=== PATIENT | male | born 1935 | race Hispanic/Latino ===

== ENCOUNTER 2023-10-03 16:58 | Emergency (ER) | payer MEDICARE, BC ==
[~2023-10-03] VITALS: Ht 170.2 cm; Wt 87.1 kg
[2023-10-03 17:47] LABS: BASOPHILS # (AUTO) 0.03 K/uL (0.00-0.20); BASOPHILS % (AUTO) 0.5 % (0.0-5.0); EOSINOPHILS # (AUTO) 0.25 K/uL (0.00-0.70); EOSINOPHILS % (AUTO) 4.4 % (0.0-8.0); HEMATOCRIT 41.2 % (42-54); LYMPHOCYTES # (AUTO) 1.3 K/uL (1.0-4.8); LYMPHOCYTES % (AUTO) 22.7 % (21.0-51.0); MEAN CORPUSCULAR HGB CONC 33.5 g/dL (32.0-36.0); MEAN CORPUSCULAR VOLUME 89.6 fL (79-99); MONOCYTES # (AUTO) 0.5 K/uL (0.1-1.0); MONOCYTES % (AUTO) 9.4 % (3.0-13.0); NEUTROPHILS # (AUTO) 3.6 K/uL (1.8-7.7); PLATELET COUNT (AUTO) 95 K/uL (130-400); RED CELL DISTRIBUTION WIDTH 13.8 % (11.0-15.5); WHITE BLOOD COUNT (AUTO) 5.7 K/uL (4.8-10.8)
[2023-10-03 17:54] LABS: CREATININE 1.4 mg/dL (0.5-1.3); POTASSIUM 4.3 mmol/L (3.5-5.1)
[2023-10-03 17:59] LABS: ALBUMIN 3.2 g/dL (3.5-5.0); BILIRUBIN,DIRECT 0.2 mg/dL (0.0-0.3); BILIRUBIN,TOTAL 0.6 mg/dL (0.2-1.0); MAGNESIUM 1.1 mg/dL (1.80-2.40); TOTAL PROTEIN, SERUM 6.5 g/dL (6.0-8.3)
[2023-10-03 18:01] LABS: INR 1.35 (0.85-1.15); PROTHROMBIN TIME 14.3 SEC (9.6-11.6)
[2023-10-03 18:03] LABS: PARTIAL THROMBOPLASTIN TIME 26.4 SEC (26.3-35.5)
[2023-10-03 18:28] LABS: APPEARANCE,URINE CLEAR (CLEAR); BILIRUBIN,URINE NEGATIVE (NEGATIVE); COLOR,URINE YELLOW (YELLOW); GLUCOSE, URINE (UA) NEGATIVE (NEGATIVE); KETONES,URINE NEGATIVE (NEGATIVE); LEUKOCYTE ESTERASE ,URINE NEGATIVE Leu/uL (NEGATIVE); NITRATE,URINE NEGATIVE (NEGATIVE); OCCULT BLOOD,URINE NEGATIVE (NEGATIVE); PH,URINE 5.5 (5.0-8.0); PROTEIN,URINE 100 mg/dL (NEGATIVE); UROBILINOGEN,URINE 0.2 mg/dL (0.2-1.0)
[2023-10-03 18:30] LABS: ADD UA MICROSCOPIC YES
[2023-10-03] MEDS ORDERED: MAGNESIUM 2GM PREMIX 50ML 50 ML IV SCH (18:30)
[2023-10-03 18:31] LABS: MUCUS,URINE RARE LPF (None Seen); RBC,URINE 0-1 /HPF (0-1); SQUAMOUS EPITHELIAL CELL,UR RARE /HPF (0-2); WBC,URINE 0-1 /HPF (0-1)
[2023-10-03] MEDS: 0.9% NACL 500ML IV.SOLN 500 ML IV SCH (19:41)
[2023-10-03] MEDS: mecliZINE HCL 12.5 MG TABLET PO ONE (19:41)
[2023-10-03] MEDS ORDERED: MECL-302 PO (19:45)
[2023-10-03 19:54] VITALS: BP 131/46; PULSE 76; RESP 13; O2SAT 95
== END 2023-10-03 20:35 | disposition home or self-care (01) ==
LOC: EDH 16:58
DX: R42 Dizziness and giddiness (principal); E83.42 Hypomagnesemia; I49.3 Ventricular premature depolarization; I10 Essential (primary) hypertension; I25.2 Old myocardial infarction; E78.5 Hyperlipidemia, unspecified; Z98.890 Other specified postprocedural states
CPT/HCPCS: 99285; 70450; 71045; 82550; 80076; 83735; 84484; 80048; 83880; 85025; 85610; 85730; 81001; 36415; 93005; J7040; 96360

== ENCOUNTER 2023-10-26 11:34 | Emergency (ER) | payer OTHER, MEDICARE ==
[~2023-10-26] VITALS: Ht 170.2 cm; Wt 87.1 kg
[~2023-10-26 11:34] MED LIST: MECL-302 PO
[2023-10-26 12:04] LABS: BASOPHILS # (AUTO) 0.01 K/uL (0.00-0.20); BASOPHILS % (AUTO) 0.2 % (0.0-5.0); EOSINOPHILS # (AUTO) 0.07 K/uL (0.00-0.70); EOSINOPHILS % (AUTO) 1.2 % (0.0-8.0); HEMATOCRIT 40.8 % (42-54); IMMATURE GRANULOCYTE ABSOLUTE 0.02 K/uL (0-1); LYMPHOCYTES # (AUTO) 0.5 K/uL (1.0-4.8); LYMPHOCYTES % (AUTO) 8.4 % (21.0-51.0); MEAN CORPUSCULAR HEMOGLOBIN 30.4 pg (27.0-33.0); MEAN CORPUSCULAR HGB CONC 33.6 g/dL (32.0-36.0); MEAN CORPUSCULAR VOLUME 90.5 fL (79-99); MONOCYTES # (AUTO) 0.7 K/uL (0.1-1.0); MONOCYTES % (AUTO) 11.9 % (3.0-13.0); NEUTROPHILS # (AUTO) 4.5 K/uL (1.8-7.7); PLATELET COUNT (AUTO) 82 K/uL (130-400); RED BLOOD CELL COUNT(AUTO) 4.51 MIL/uL (4.50-6.20); RED CELL DISTRIBUTION WIDTH 14.1 % (11.0-15.5); WHITE BLOOD COUNT (AUTO) 5.8 K/uL (4.8-10.8)
[2023-10-26 12:12] LABS: CREATININE 1.5 mg/dL (0.5-1.3); POTASSIUM 4.4 mmol/L (3.5-5.1)
[2023-10-26] MEDS: ALBUTEROL 0.083% 2.5 MG/3 ML INH IH ONE (14:04)
[2023-10-26 14:07] VITALS: PULSE 85; RESP 18
[2023-10-26] MEDS: dexaMETHasone SOD PHOSPHATE 4 MG/ML 1ML VIAL IV ONE (14:11)
[2023-10-26] MEDS ORDERED: ALBUHFA IH (14:25)
[2023-10-26] MEDS ORDERED: BENZ-39 PO (14:25)
[2023-10-26] MEDS ORDERED: AZIT500T2 PO (14:25)
[2023-10-26 15:03] VITALS: BP 128/50; PULSE 16; RESP 18; TEMP 97.8; O2SAT 99
== END 2023-10-26 15:06 | disposition home or self-care (01) ==
LOC: EDH 11:34
DX: U07.1 COVID-19 (principal); R06.00 Dyspnea, unspecified; I12.9 Hypertensive chronic kidney disease with stage 1 through stage 4 chronic kidney disease, or unspecified chronic kidney disease; E11.22 Type 2 diabetes mellitus with diabetic chronic kidney disease; N18.9 Chronic kidney disease, unspecified; E11.65 Type 2 diabetes mellitus with hyperglycemia; Z79.899 Other long term (current) drug therapy; Z98.890 Other specified postprocedural states
CPT/HCPCS: 99285; 96374; 71045; 87426; 84484; 80048; 85025; 36415; 93005; 94640; J1100

== ENCOUNTER 2024-04-21 13:26 | Emergency (ER) | payer OTHER ==
[~2024-04-21] VITALS: Ht 170.2 cm; Wt 84.8 kg
[~2024-04-21 13:26] MED LIST changes: +ALBUHFA IH; +AZIT500T2 PO; +BENZ-39 PO
--- NOTE | 2024-04-21 13:48 | ERN ---
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 Patient was brought in by EMS with stable vital signs. Patient reports about 24 hours ago he developed a headache. Insidious in onset. Bilateral frontal. No vision changes. No vomiting. No confusion. No recent falls. No blood thinners. Patient reports he normally does not get headaches in his concerned that this headache is worse than usual. Allergies: Coded Allergies: No Known Drug Allergies (Unverified Allergy, Unknown, 10/03/23) Home Meds Active Scripts Azithromycin (Zithromax Tri-Nickolas) 500 Mg Tablet, 500 MG PO AD for 5 Days, #5 TAB ONE TABLET P.O. DAILY FOR FIVE DAYS. Prov:JONATHON DE LUNA NP 10/26/23 Benzonatate (Tessalon Perles) 100 Mg Cap, 100 MG PO TID for cough, #30 CAP 0 Refills Prov:JONATHON DE LUNA NP 10/26/23 Albuterol Sulfate (Ventolin Hfa/Proventil Hfa/Proair Hfa) 90 Mcg Puff, 2 PUFF IH Q4H for WHEEZING, #1 INHALER 0 Refills Prov:JONATHON DE LUNA NP 10/26/23 Meclizine HCl (Meclizine HCl) 25 Mg Tablet, 12.5 MG PO TID for vertigo, #30 TAB 0 Refills Prov:LURDES BOWLES MD 10/03/23 Past Medical History Past Medical History: Hypertension Past Surgical History: None ROS Dictation CONSTITUTIONAL: No chills, no fever, no weakness, no diaphoresis, no malaise. HEAD/FACE: No signs of trauma. EENT: No eye pain, no blurred vision, no tearing, no double vision, no ear pain, no ear discharge, no nose pain, no nasal congestion, no throat pain, no throat swelling, no mouth pain. RESPIRATORY: No cough, no orthopnea, no SOB, no stridor, no wheezing. CARDIOVASCULAR: No chest pain, no edema, no palpitations, no syncope. GASTROINTESTINAL/ABDOMINAL: No abdominal pain, no constipation, no diarrhea, no nausea, no vomiting. GENITOURINARY: No abnormal discharge, no dysuria, no frequent urination, no hematuria. No complaints of pain in the genitals. MUSCULOSKELETAL: No back pain, no gout, no joint pain, no joint swelling, no muscle pain, no muscle stiffness, no neck pain. INTEGUMENTARY: No change in color, no change in hair/nails, no dryness, no lesion, no lumps, no rash. NEUROLOGICAL/PSYCH: Hepatoma headache HEMATOLOGIC/LYMPHATIC: Not anemic, no history of blood clots, no apparent bleeding, no bruising, glands not swollen. All Systems Negative, Except as Noted. Physical Exam Physical Exam Dictation VITAL SIGNS: Reviewed. GENERAL APPEARANCE: Alert, oriented x3, no acute distress HEAD AND FACE: Non-traumatic. EYES: PERRL, pink conjunctivas, eyelid no trauma, anterior chamber clear. EARS: Pinnas intact and no signs of trauma or erythema. Ear canals clear and no discharge. TMs no erythema. NOSE: No discharge, no bleeding. OROPHARYNX: Mouth normal, teeth no caries, tongue pink. Pharynx clear, no erythema. Tonsils no exudates, no abscesses noted. Mucous membrane moist. NECK: Supple, non-tender, no thyromegaly, no masses, no JVD, no bruits. BREAST: Deferred. CHEST: No tenderness, no crepitus, no paradoxical movement, no retractions. LUNGS: Clear, well-ventilated, symmetric, no rales, no wheezing, no rhonchi, no stridor, good breath sounds bilaterally. HEART: Regular rate, regular rhythm, no murmur, no gallops. VASCULAR: No peripheral edema. ABDOMEN: Soft, positive bowel sounds, nondistended, no guarding, nontender, no rebound, no masses no hepatomegaly, no splenomegaly, no Abbott's sign, no hernias. RECTAL: Deferred. GENITAL: Deferred. NEUROLOGICAL: Normal speech, gross motor function intact, gross sensory function intact. MUSCULOSKELETAL: Neck nontender, full range of motion, back nontender, full range of motion. EXTREMITIES: Nontender, full range of motion. SKIN: Color pink, dry, no turgor, no rash, no lacerations, no abrasions, no contusions. LYMPHATICS: Deferred. Results Laboratory and Microbiology Lab and Micro Result Laboratory Tests Test 04/21/24 14:16 White Blood Count 5.9 K/uL (4.8-10.8) Red Blood Count 5.44 MIL/uL (4.50-6.20) Hemoglobin 16.9 g/dL (14.0-18.0) Hematocrit 49.6 % (42-54) Mean Corpuscular Volume 91.2 fL (79-99) Mean Corpuscular Hemoglobin 31.1 pg (27.0-33.0) Mean Corpuscular Hemoglobin Concent 34.1 g/dL (32.0-36.0) Red Cell Distribution Width 13.2 % (11.0-15.5) Platelet Count 92 K/uL (130-400) L Mean Platelet Volume 11.5 fL (7.5-10.5) H Immature Granulocyte % (Auto) 0.5 % (0-1) Neutrophils (%) (Auto) 72.2 % (40.0-77.0) Lymphocytes (%) (Auto) 15.9 % (21.0-51.0) L Monocytes (%) (Auto) 8.6 % (3.0-13.0) Eosinophils (%) (Auto) 2.0 % (0.0-8.0) Basophils (%) (Auto) 0.8 % (0.0-5.0) Neutrophils # (Auto) 4.3 K/uL (1.8-7.7) Lymphocytes # (Auto) 0.9 K/uL (1.0-4.8) L Monocytes # (Auto) 0.5 K/uL (0.1-1.0) Eosinophils # (Auto) 0.12 K/uL (0.00-0.70) Basophils # (Auto) 0.05 K/uL (0.00-0.20) Absolute Immature Granulocyte (auto 0.03 K/uL (0-1) Nucleated Red Blood Cells 0.0 % (0.0-0.19) Sodium Level 133 mmol/L (136-145) L Potassium Level 3.9 mmol/L (3.5-5.1) Chloride Level 98 mmol/L (101-111) L Carbon Dioxide Level 29 mmol/L (21-32) Blood Urea Nitrogen 21 mg/dL (7-18) H Creatinine 1.4 mg/dL (0.5-1.3) H Glomerular Filtration Rate Calc 49 mL/min (>90) Random Glucose 338 mg/dL (70-105) H Total Calcium 9.2 mg/dL (8.5-10.1) Total Creatine Kinase 47 U/L (21-232) Troponin I High Sensitivity 18.9 ng/L (4-75) MDM CC: Headache Historian: Patient Comorbidities: Advanced age, diabetes, hypertension Limitations by social determinants of health: None Vital signs: Stable Clinical exam: Cranial nerves are intact Differential diagnosis: Benign headache, migraine, tension, brain bleed, subarachnoid, other. Labs (independently ordered and interpreted by me ): No leukocytosis or anemia. Platelets 92. Chemistries unremarkable. Creatinine 1.4 baseline for patient. He does have an elevated glucose level 338. CK is stable. Troponin is normal. CT head without contrast ( independently ordered and interpreted by me ): No acute bleed or abnormalities. Treatment in ED: 1 L of lactated Ringer's, 15 mg IV Toradol. Re-evaluation: Patient reports feeling much better. He was asymptomatic and ambulatory. He reports that he feels better and wants to go home. I did offer the patient admission for observation since he would have a headache came in by EMS he was very concerned. He reports that he only came in by EMS because he did not have a ride otherwise he would a went to his doctor's office. He does not want to stay in the hospital this time. He was a GCS 15 and otherwise looks very well. We will DC. ED Course Orders Procedure Category Date Status Time Ct Head/Brain W/O CT 04/21/24 Resulted Contrast 13:41 Cbc With Differential LAB 04/21/24 Complete 13:41 Basic Metabolic Panel LAB 04/21/24 Complete 13:41 Lactated Ringers PHA 04/21/24 Complete 1000ml (Lactated 14:00 Ketorolac PHA 04/21/24 Complete Tromethamine 15mg/Ml 14:00 Cardiac Panel LAB 04/21/24 Complete 13:46 Chest 1vw RAD 04/21/24 Resulted 13:46 Current Medications Medications (Trade) Dose Ordered Sig/Nola Route PRN Reason Start Time Stop Time Status Last Admin Dose Admin Ketorolac Tromethamine (toRADol) 15 mg ONCE ONCE IV 04/21/24 14:00 04/21/24 14:05 DC 04/21/24 14:51 Lactated Ringer's 1,000 ml @ 0 mls/hr ONCE ONCE IV 04/21/24 14:00 04/21/24 14:01 DC 04/21/24 14:51 Vital Signs Date Time Temp Pulse Resp B/P (MAP) Pulse Ox O2 Delivery O2 Flow Rate FiO2 04/21/24 15:00 98.4 64 19 155/69 98 Room Air* 0 21 04/21/24 14:18 98.4 63 16 165/67 97 Room Air 0 DX & DISP Disposition: Discharge Departure Impression: Primary Impression: Headache Condition: Stable Scripts Ketorolac Tromethamine (Toradol) 10 Mg Tab 1 TAB PO Q6HPRN PRN for pain for 5 Days, #20 TAB 0 Refills Prov: ELIEZER NAIR DO 04/21/24 Additional Instructions: There are no dangerous findings on your workup here today. Your symptoms are consistent with a benign headache. The CT scan of your brain is unremarkable. Your blood work (CBC, BMP, troponin) is unremarkable. You received IV fluids and Toradol here in the ER. I have prescribed ketorolac to use as needed for significant headache. Use as needed. Please follow up with the primary doctor. Please return to the emergency department if you have any concerns. Referrals: SELF,REFERRAL (PCP) ELIEZER NAIR DO Apr 21, 2024 13:48
[2024-04-21 14:33] LABS: BASOPHILS # (AUTO) 0.05 K/uL (0.00-0.20); BASOPHILS % (AUTO) 0.8 % (0.0-5.0); EOSINOPHILS # (AUTO) 0.12 K/uL (0.00-0.70); HEMATOCRIT 49.6 % (42-54); IMMATURE GRANULOCYTE ABSOLUTE 0.03 K/uL (0-1); LYMPHOCYTES # (AUTO) 0.9 K/uL (1.0-4.8); LYMPHOCYTES % (AUTO) 15.9 % (21.0-51.0); MEAN CORPUSCULAR HEMOGLOBIN 31.1 pg (27.0-33.0); MEAN CORPUSCULAR HGB CONC 34.1 g/dL (32.0-36.0); MEAN CORPUSCULAR VOLUME 91.2 fL (79-99); MONOCYTES # (AUTO) 0.5 K/uL (0.1-1.0); MONOCYTES % (AUTO) 8.6 % (3.0-13.0); NEUTROPHILS # (AUTO) 4.3 K/uL (1.8-7.7); NEUTROPHILS % (AUTO) 72.2 % (40.0-77.0); PLATELET COUNT (AUTO) 92 K/uL (130-400); RED BLOOD CELL COUNT(AUTO) 5.44 MIL/uL (4.50-6.20); RED CELL DISTRIBUTION WIDTH 13.2 % (11.0-15.5); WHITE BLOOD COUNT (AUTO) 5.9 K/uL (4.8-10.8)
[2024-04-21 14:39] LABS: CREATININE 1.4 mg/dL (0.5-1.3); POTASSIUM 3.9 mmol/L (3.5-5.1)
[2024-04-21] MEDS: ketOROlac 15MG/ML VIAL (15MG/ML) IV ONE (14:51)
[2024-04-21] MEDS: LACTATED RINGERS 1000ML 1,000 ML IV ONE (14:51)
--- NOTE | 2024-04-21 15:47 | HMCIMG ---
Exam Type: CT HEAD/BRAIN W/O CONTRAST Clinical Information: headache Comparison: None CT Dose Index (CTDI): 57.33 mGy Dose Length Product (DLP): 956.79 total mGy-cm Findings: The examination shows atrophy. There is low attenuation throughout the periventricular white matter locations, consistent with chronic small vessel ischemic changes. No acute intra- or extra-axial fluid collections are seen. There is no evidence of acute or chronic hemorrhage. There is no mass effect or shift of midline structures. There are no areas to suggest acute infarct. The skull windows show no significant abnormalities. IMPRESSION: 1. ATROPHY AND CHRONIC SMALL VESSEL ISCHEMIC CHANGES. This study was performed using dose reduction techniques to include automated exposure control and/or adjustment of the mA and/or kV according to patient size.
--- NOTE | 2024-04-21 16:21 | HMCIMG ---
Exam Type: CHEST 1VW Clinical Information: chest pain Comparison: October 26, 2023 Findings: Pulmonary pattern is as before. No worrisome interval changes have taken place. Impression: Stable exam.
[2024-04-21] MEDS ORDERED: KETO10 PO (17:01)
[2024-04-21 17:19] VITALS: BP 149/77; PULSE 61; RESP 16; TEMP 98.4; O2SAT 97
== END 2024-04-21 17:21 | disposition home or self-care (01) ==
LOC: EDH 13:26
DX: R51.9 Headache, unspecified (principal); E11.9 Type 2 diabetes mellitus without complications; I10 Essential (primary) hypertension; I67.82 Cerebral ischemia; N40.0 Benign prostatic hyperplasia without lower urinary tract symptoms; Z79.899 Other long term (current) drug therapy
CPT/HCPCS: 99285; 96374; 70450; 71045; 96361; 82550; 84484; 80048; 85025; 36415; J1885; J7120